=== PATIENT | male | born 1955 | race Caucasian/White ===

== ENCOUNTER 2018-04-10 09:02 | Outpatient (CLI) | payer OTHER | END 2018-04-10 09:03 | disposition home or self-care (01) | LOC: CAR 09:02 | PROVIDERS: ATTEND Family Medicine | DX: R03.0 Elevated blood-pressure reading, without diagnosis of hypertension (principal) | CPT/HCPCS: 93005; 93010 ==

== ENCOUNTER 2018-12-26 08:38 | Outpatient (CLI) ==
--- NOTE | 2018-12-26 13:15 | MRI ---
EXAM: Lumbar spine MRI without contrast. HISTORY: Low back pain. COMPARISON: None. TECHNIQUE: Multiplanar, multisequence MR images were acquired of the lumbar spine without contrast. The study is degraded by patient motion and lack of [id number] which produces decreased spatial and contrast resolution. FINDINGS: Five non-rib bearing lumbar vertebra are present. Conus medullaris ends at L1-2 and is no rmal morphology and signal intensity. Canal diameter is developmentally narrow. The lumbar vertebra are normal in height, AP alignment and intrinsic bone marrow signal. There is mild lumbar ventral s pondylosis and disc desiccation at L4-5 and L5-S1. There is mild endplate irregularity from T10-11 t hrough L2-3 with small chronic Schmorl's nodes from T10 to L2. The partially visualized liver, spleen and kidneys are unremarkable. Descending colonic diverticula are present without diverticulitis. The bladder is distended. There are no paravertebral masses. L1-2: There is a minor posterior disc bulge that may be physiologic. There is no central canal sten osis. Neural foramina are patent. L2-3: There is a minor disc bulge that minimally narrows the inferior right neural foramen. In this patient with short pedicles, there is minor bilateral foraminal stenosis. L3-4: There is a mild disc bulge with endplate osteophytes and bilateral facet arthropathy and ligam entum flavum hypertrophy. This causes mild right and mild to moderate left neural foraminal stenosis . There is no central canal stenosis. L4-5: There is a mild diffuse spondylotic disc bulge with endplate osteophytes that is asymmetric to the left and a small probable left far lateral disc protrusion that encroaches on the exiting left L 4 nerve. Detail is limited by patient motion. Bilateral facet and ligamentum flavum hypertrophy is present and there is minor central canal stenosis and moderate bilateral foraminal stenosis. AP diam eter of the thecal sac is 9.3 mm. L5-S1: There is a mild diffuse spondylotic disc bulge and a small central disc extrusion. Mild righ t hypertrophic facet arthropathy and mild left facet arthropathy are present. There is moderate righ t and mild-moderate left neural foraminal stenosis. There is mild tapering of the thecal sac. IMPRESSION: 1. Mild lower thoracic and lumbar degenerative spondylosis and facet arthropathy. Mild spinal steno sis at L4-5. 2. Probable small left far lateral disc protrusion L4-5 that encroaches on the exiting left L4 nerve . Detail is limited by patient motion. The lack of [id number]. 3. Small central disc extrusion L5-S1. 4. Mild to moderate left L3-4, moderate bilateral L4-5 and moderate right and mild to moderate left L5-S1 neural foraminal stenosis. 5. Colonic diverticulosis without diverticulitis.
== END 2018-12-26 08:39 | disposition home or self-care (01) ==
LOC: RAD 08:38
PROVIDERS: ATTEND Chiropractor Sports Physician
DX: M99.03 Segmental and somatic dysfunction of lumbar region (principal)

== ENCOUNTER 2024-08-03 18:50 | Observation (INO) ==
[2024-08-03 19:28] LABS: BASOPHILS % (AUTO) 0.2 % (0.0-3.0); EOSINOPHILS % (AUTO) 0.1 % (0.0-7.0); HEMATOCRIT 39.2 % (42.0-52.0); HEMOGLOBIN 13.6 g/dl (14.0-18.0); IMMATURE GRANULOCYTE # (AUTO) 0.1 (0.0-1.0); IMMATURE GRANULOCYTE % (AUTO) 0.5 % (0.0-5.0); LYMPHOCYTES # (AUTO) 2.4 K/uL (0.60-3.4); LYMPHOCYTES % (AUTO) 13.3 (10.0-50.0); MEAN CORPUSCULAR HEMOGLOBIN 34.4 pg (27.0-31.0); MEAN CORPUSCULAR HGB CONC 34.7 (31.8-35.4); MEAN CORPUSCULAR VOLUME 99.2 fl (80.0-94.0); MONOCYTES # (AUTO) 0.9 K/uL (0.4-2.0); MONOCYTES % (AUTO) 5.2 (0-10); NEUTROPHILS # (AUTO) 14.5 K/ul (2.0-6.9); NEUTROPHILS % (AUTO) 80.7 % (42.2-75.2); PLATELET COUNT 245 10^3/uL (140-440); RDW COEFFICIENT OF VARIATION 12.4 % (11.6-14.8); RED BLOOD COUNT 3.95 10^6/ul (4.70-6.10); WHITE BLOOD COUNT 18.01 K/ul (4.2-10.2)
[2024-08-03] MEDS: DUONEB NEB STA (19:28)
[2024-08-03] MEDS: DECADRON IVP ONE (19:32)
--- NOTE | 2024-08-03 19:33 | ED.PDOC ---
General ED Provider: Dr. DORA DURAND DO Chief Complaint: Respiratory Complaint Stated Complaint: 69-year-old male presents to the ER reporting cough and generalized weakness. Prickly worse today. Subjective fever at home. Nonproductive cough. History of hypertension, CVA, skin cancer, prostatectomy. Denies chest pain or abdominal pain, GI or symptoms at this time. No treatment prior to arrival. Time Seen by Provider: 08/03/24 18:54 Information Source: Patient and Family Primary Care Provider: PRICILA ANGEL Nursing and Triage Documentation Reviewed and Agree: Yes What is Opioid Naive?: *Opioid Naive implies the patient is not already taking opioids or not chronically receiving opioids on a daily basis. *PRN dosing is not "usually" associated with tolerance. *Patients are at higher risk of over-sedation and aspiration. What is Opioid Tolerant?: *Opioid Tolerance implies less than the expected response to an opioid. *Acquired tolerance is defined by the patient taking 60mg of oral morphine daily (or equianalgesic dose of another opioid) for 1 week or more. *Often associated with chronic pain. *May take more than usual dose to achieve desired pain control. Review of Systems Review Of Systems Constitutional: Reports No symptoms All Other Systems: Reviewed and Negative Physical Exam Physical Exam Appearance: Reports Well-appearing, No pain distress and Well-nourished Eyes: Reports MARIELOS and EOMI ENT: Reports Nose normal and Oropharynx normal Respiratory: Reports Airway patent, Respirations nonlabored and Crackles; Denies Rhonchi, Wheezes or Retractions Cardiovascular: Reports Pulses normal and Tachycardia; Denies RRR GI/: Reports Soft and Nontender Musculoskeletal: Reports Normal strength, ROM intact and No edema Skin: Reports Warm, Dry and Normal color Neurological: Reports Sensation intact, Motor intact, Alert and Oriented Psychiatric: Reports Affect appropriate and Mood appropriate Interpretation EKG Interpretation EKG Interpretation By: ED Physician Time of EKG #1: 19:13 Rate: Tachy Rhythm: Sinus Ectopy: None [facility]: Left ST Segment: Normal Interpretation: non ischemic Radiology Interpretation Radiology Interpretation By: ED Physician Radiology Results: Positive Exam Interpreted: Portable CXR (LLQ PNA) Critical Care Note Critical Care Note Total Critical Care Time (mins): 95 Comments: 79-year-old female presents hypoxic with subsequent diagnosis of pneumonia. Required supplemental oxygen, prolonged breathing treatments, cardiac monitoring, reassessments, reevaluation for response to treatment and continued advanced medical decision making in a potentially life-threatening condition Tissue reperfusion assessment completed. Stable. No adverse interval change. Well-appearing, improved. Course Course 08/03/24 19:18 08/03/24 19:18 Orders, Labs, Meds: Lab Review 08/03/24 08/03/24 08/03/24 19:18 19:21 20:00 WBC 18.01 H RBC 3.95 L Hgb 13.6 L Hct 39.2 L MCV 99.2 H MCH 34.4 H MCHC 34.7 RDW Coeff of Calvin 12.4 Plt Count 245 Immature Gran % (Auto) 0.5 Neut % (Auto) 80.7 H Lymph % (Auto) 13.3 [place] % (Auto) 5.2 Eos % (Auto) 0.1 Baso % (Auto) 0.2 Neut # (Auto) 14.5 H Lymph # (Auto) 2.4 [place] # (Auto) 0.9 Eos # (Auto) 0.0 Baso # (Auto) 0.0 Immature Gran # (Auto) 0.1 Sodium 135.0 Potassium 3.56 Chloride 101.9 Carbon Dioxide 22.8 Anion Gap 13.86 BUN 19.4 Creatinine 0.86 Estimated GFR (MDRD) 88.00 BUN/Creatinine Ratio 22.55 Glucose 133.3 H Lactic Acid 1.03 Calcium 10.18 Total Bilirubin 0.81 AST 26.3 ALT 21.6 Alkaline Phosphatase 69.4 Troponin I < 0.012 NT-Pro-B Natriuret Pep 381 H Total Protein 7.95 Albumin 4.66 Globulin 3.29 Albumin/Globulin Ratio 1.41 Urine Color Yellow Urine Clarity Clear Urine pH 6.5 Ur Specific [place] 1.010 Urine Protein Trace H Urine Glucose (UA) Negative Urine Ketones Negative Urine Blood Trace-lysed Urine Nitrite Negative Urine Bilirubin Negative Urine Urobilinogen 0.2 Ur Leukocyte Esterase Negative Urine Microscopic RBC 2-5 Ur Squamous Epith Cells 0-2 Influ A Molecular Assay Negative by naat Influ B Molecular Assay Negative by naat RSV Antigen Negative by naat SARS CoV-2 RNA Rapid KLARISSA Negative Orders Category Date Time Status ADMIT OBSERVATION [PLACE PATIENT OBSERVATION] .TO ADMISSION 08/03/24 20:48 Ordered MEDSURG (MONITORED BED) EKG-(ED ONLY) Stat CARDIO 08/03/24 19:05 Completed NEBULIZER TREATMENT Stat CARDIO 08/03/24 19:11 Completed NEBULIZER TREATMENT Stat CARDIO 08/03/24 20:35 Ordered TELEMETRY MONITORING TELE CARE 08/03/24 20:48 Ordered OXYGEN [ED APPLY O2] .ONCE EMERGENCY 08/03/24 19:43 Active BLOOD CULTURE (ED ONLY) Stat LAB 08/03/24 19:18 Received CBC W/ AUTO DIFF Stat LAB 08/03/24 19:18 Completed CMP [COMPREHENSIVE METABOLIC PANEL] Stat LAB 08/03/24 19:18 Completed COVID [SARS COV-2 RNA RAPID KLARISSA] Stat LAB 08/03/24 19:21 Completed ED PROBNP [NT-PROBNP(ED)] Stat LAB 08/03/24 19:18 Completed FLU A & B MOLECULAR [FLU A/B MOLECULAR] Stat LAB 08/03/24 19:21 Completed LACTIC ACID Stat LAB 08/03/24 19:18 Completed RSV Stat LAB 08/03/24 19:21 Completed TROPONIN I Stat LAB 08/03/24 19:18 Completed URINALYSIS C & S IF INDICATED Stat LAB 08/03/24 20:00 Completed Acetylcysteine [Mucomyst 20% Neb] Meds 08/03/24 20:35 Discontinued 200 mg NEB ONCE STA Azithromycin Inj [Zithromax] 500 mg Meds 08/03/24 20:35 Active 0.9 % Sodium Chloride [Sodium Chloride] 250 ml IV ONCE Cefepime 2 gm/D5w [Maxipime 2 gm/50 ml D5w] Meds 08/03/24 19:34 Discontinued 2 gm in 50 ml IV ONCE Dexamethasone Sod Phosphate [Decadron] Meds 08/03/24 19:11 Discontinued 10 mg IVP ONCE ONE Ipratropium/Albuterol Neb [Duoneb] Meds 08/03/24 19:11 Discontinued 3 ml NEB ONCE STA Sodium Chloride 0.9% [Sodium Chloride] 1,000 ml Meds 08/03/24 19:42 Discontinued IV BOLUS CHEST, 1V AP ONLY Stat RADS 08/03/24 19:06 Completed Medications Generic Name Dose Route Start Last Admin Trade Name Freq PRN Reason Stop Dose Admin Azithromycin 500 mg/ Sodium 250 mls @ 250 mls/hr 08/03/24 20:35 Chloride IV 08/03/24 21:34 ONCE STA Discontinued Medications Generic Name Dose Route Start Last Admin Trade Name Freq PRN Reason Stop Dose Admin Acetylcysteine 200 mg 08/03/24 20:35 Acetylcysteine 200 Mg/Ml 4 Ml Neb.Vial NEB 08/03/24 20:36 ONCE STA Albuterol/Ipratropium 3 ml 08/03/24 19:11 08/03/24 19:28 Ipratropium/Albuterol Vial.Neb NEB 08/03/24 19:12 3 ml ONCE STA Administration Dexamethasone Sodium Phosphate 10 mg 08/03/24 19:11 08/03/24 19:32 Dexamethasone Sod Phos 10 Mg/Ml Inj IVP 08/03/24 19:12 10 mg ONCE ONE Administration CEFEPIME 2 GM/D5W 2 gm in 50 mls @ 100 mls/hr 08/03/24 19:34 08/03/24 20:10 Maxipime 2 Gm/50 Ml D5w IV 08/03/24 20:03 100 mls/hr ONCE STA Administration Sodium Chloride 1,000 mls @ 1,000 mls/hr 08/03/24 19:42 08/03/24 20:10 Sodium Chloride IV 08/03/24 20:41 1,000 mls/hr BOLUS ONE Administration Vital Signs: Temp Pulse Resp BP Pulse Ox 08/03/24 18:59 98.7 F 115 H 20 173/90 H 93 L Discharge Plan Discharge Patient Disposition: PLACED OBSERVATION Discharge Problem: Sepsis, Pneumonia, Acute respiratory failure Prescriptions: No Action colchicine 0.6 mg tablet 0.6 mg PO BID atorvastatin 80 mg tablet 80 mg PO DAILY valacyclovir 1 gram tablet 1,000 mg PO DAILY amlodipine 5 mg tablet 5 mg PO DAILY allopurinol 100 mg tablet 200 mg PO DAILY losartan 100 mg tablet 100 mg PO DAILY omeprazole 20 mg capsule,delayed release(DR/EC) 20 mg PO DAILY aspirin [Adult Low Dose Aspirin] 81 mg tablet,delayed release (DR/EC) 81 mg PO DAILY Did you review [place] [employer] for ALL controlled substances?: Not Applicable ED Provider: DORA DURAND Condition: Stable
[2024-08-03 19:39] LABS: ALANINE AMINOTRANSFERASE 21.6 U/L (0-50); ALBUMIN 4.66 g/dL (3.5-5.0); ALKALINE PHOSPHATASE 69.4 U/L (56-119); ASPARTATE AMINO TRANSFERASE 26.3 U/L (17-59); BILIRUBIN,TOTAL 0.81 mg/dL (0.2-1.3); BLOOD UREA NITROGEN 19.4 mg/dL (9-20); CALCIUM 10.18 mg/dL (8.4-10.2); CARBON DIOXIDE 22.8 mmol/L (22-30.0); CHLORIDE 101.9 mmol/L (98-107); CREATININE 0.86 mg/dL (0.60-1.10); GLUCOSE 133.3 mg/dL (74-106); POTASSIUM 3.56 mmol/L (3.5-5.1); TOTAL PROTEIN 7.95 g/dL (6.3-8.2)
--- NOTE | 2024-08-03 19:41 | DI ---
EXAM: CHEST, ONE-VIEW HISTORY: Shortness of breath FINDINGS: Cardiac and mediastinal contours are normal. Pulmonary vasculature is normal. Elevated opacity in t he retrocardiac left lower lobe. Bony thorax is unremarkable. IMPRESSION: Consolidative opacity in the retrocardiac left lower lobe may represent pneumonia. Foll ow-up to resolution recommended.
[2024-08-03 19:46] LABS: SARS COV-2 RNA RAPID NAAT NEGATIVE (NEGATIVE)
[2024-08-03 19:47] LABS: MOLECULAR FLU A NEGATIVE BY NAAT (NEGATIVE); MOLECULAR FLU B NEGATIVE BY NAAT (NEGATIVE); RSV MOLECULAR NEGATIVE BY NAAT (NEGATIVE)
[2024-08-03 19:51] LABS: TROPONIN I < 0.012 ng/ml (0.0000-0.120)
[2024-08-03] MEDS: SODIUM CHLORIDE 1,000 ML IV ONE (20:10)
[2024-08-03] MEDS: MAXIPIME 2 GM/50 ML D5W 2 GM/50 ML BAG IV STA (20:10)
[2024-08-03 20:14] LABS: BILIRUBIN,URINE Negative (NEGATIVE); CLARITY,URINE Clear (CLEAR); COLOR,URINE Yellow (YELLOW); GLUCOSE, URINE (UA) Negative (NEGATIVE); KETONES,URINE Negative (NEGATIVE); LEUKOCYTE ESTERASE ,URINE Negative (NEGATIVE); NITRITE,URINE Negative (NEGATIVE); PH,URINE 6.5 (5-9); PROTEIN,URINE Trace (NEGATIVE); URINE, BLOOD Trace-lysed (NEGATIVE); UROBILINOGEN,URINE 0.2 (0.2)
[2024-08-03 20:16] LABS: SQUAMOUS EPITHELIAL CELL,UR 0-2 (0-5)
[2024-08-03] MEDS: MUCOMYST 20% NEB NEB STA (20:51)
[2024-08-03] MEDS ORDERED: TYLENOL PO PRN (21:07)
[2024-08-03] MEDS: ZITHROMAX 500 MG in SODIUM CHLORIDE 250 ML IV STA (21:24)
[2024-08-04] MEDS: DUONEB NEB SCH (00:02)
[2024-08-04 00:37] VITALS: BMI 27.2
[2024-08-04] MEDS: SOLU-MEDROL 40 MG IVP SCH (05:30)
[2024-08-04 05:42] LABS: BASOPHILS % (AUTO) 0.1 % (0.0-3.0); EOSINOPHILS % (AUTO) 0.2 % (0.0-7.0); HEMATOCRIT 38.3 % (42.0-52.0); HEMOGLOBIN 12.9 g/dl (14.0-18.0); IMMATURE GRANULOCYTE # (AUTO) 0.1 (0.0-1.0); IMMATURE GRANULOCYTE % (AUTO) 0.8 % (0.0-5.0); LYMPHOCYTES % (AUTO) 7.9 (10.0-50.0); MEAN CORPUSCULAR HEMOGLOBIN 33.7 pg (27.0-31.0); MEAN CORPUSCULAR HGB CONC 33.7 (31.8-35.4); MONOCYTES # (AUTO) 0.3 K/uL (0.4-2.0); MONOCYTES % (AUTO) 2.2 (0-10); NEUTROPHILS # (AUTO) 11.5 K/ul (2.0-6.9); NEUTROPHILS % (AUTO) 88.8 % (42.2-75.2); PLATELET COUNT 251 10^3/uL (140-440); RDW COEFFICIENT OF VARIATION 12.4 % (11.6-14.8); RED BLOOD COUNT 3.83 10^6/ul (4.70-6.10)
[2024-08-04 06:04] LABS: ALANINE AMINOTRANSFERASE 21.3 U/L (0-50); ALBUMIN 4.34 g/dL (3.5-5.0); ALKALINE PHOSPHATASE 60.7 U/L (56-119); ASPARTATE AMINO TRANSFERASE 24.7 U/L (17-59); BILIRUBIN,TOTAL 0.36 mg/dL (0.2-1.3); BLOOD UREA NITROGEN 19.3 mg/dL (9-20); CALCIUM 9.81 mg/dL (8.4-10.2); CHLORIDE 106.5 mmol/L (98-107); CREATININE 0.95 mg/dL (0.60-1.10); GLUCOSE 260.9 mg/dL (74-106); POTASSIUM 3.64 mmol/L (3.5-5.1); SODIUM 138.4 mmol/L (134.5-145); TOTAL PROTEIN 7.74 g/dL (6.3-8.2)
[2024-08-04 06:26] LABS: WHITE BLOOD COUNT 12.96 K/ul (4.2-10.2)
[2024-08-04] MEDS ORDERED: MAXIPIME 2 GM/50 ML D5W 2 GM/50 ML BAG IV SCH (08:00)
[2024-08-04] MEDS: COLCRYS PO SCH (09:30)
[2024-08-04] MEDS: NORVASC PO SCH (09:31)
[2024-08-04] MEDS: COZAAR PO SCH (09:31)
[2024-08-04] MEDS: ZYLOPRIM PO SCH (09:31)
[2024-08-04] MEDS: VALTREX PO SCH (09:31)
[2024-08-04] MEDS: ASPIRIN EC PO SCH (09:31)
[2024-08-04] MEDS: LIPITOR PO SCH (09:31)
[2024-08-04] MEDS: PRILOSEC PO SCH (09:31)
[2024-08-04] MEDS: ROCEPHIN 1 GM/50 ML D5W 1 GM/50 ML BAG IV SCH (09:38)
--- NOTE | 2024-08-04 12:07 | PCM ---
Date of Service Date Seen by Provider: 08/04/24 Time Seen by Provider: 09:00 Admit Day/Time Admission Date: 08/03/24 Reason for Admission Chief Complaint: COUGH,CONGESTION Hospital Provider Hospital Provider: CORINNA GEORGE, [facility] [place] Primary Care Physician Primary Care Physician: PRICILA ANGEL History of Present Illness History of Present Illness: 69 yo male with pmh of htn, hld, alcohol abuse, and cad presented to the ER with complaints of cough, congestion, and shortness of breath. Patient states that over the last 3 days that he has continued to not feel well. States yesterday he just kept coughing continuously. Cough was dry at that time. Denies fever, chills, body aches, chest pain, n/v/d. Patient found to have pneumonia on chest xray. Also, while in ER patient O2 sat dropping down to upper 80s. He was placed on 2L at that time. Admitted to med/surg observation. Case Discussed With Case Discussed With: Patient's case was discussed with the ER Physicians, Dr. Elizalde. [facility] Medical History Prostate disease N42.9 - Disorder of prostate, unspecified (ICD-10) Carotid artery disease I77.9 - Disorder of arteries and arterioles, unspecified (ICD-10) Shingles B02.9 - Zoster without complications (ICD-10) Acid reflux K21.9 - Gastro-esophageal reflux disease without esophagitis (ICD-10) Gout M10.9 - Gout, unspecified (ICD-10) High cholesterol E78.00 - Pure hypercholesterolemia, unspecified (ICD-10) HTN (hypertension) I10 - Essential (primary) hypertension (ICD-10) Surgical History History of back surgery Z98.890 - Other specified postprocedural states (ICD-10) History of prostatectomy Z90.79 - Acquired absence of other genital organ(s) (ICD-10) History of carotid endarterectomy Z98.890 - Other specified postprocedural states (ICD-10) Social History Smoking and tobacco status: Current every day smoker Tobacco: How many years used: 50 Alcohol intake: current Alcohol intake frequency: a few times a week Alcohol type: beer Substance use type: does not use Allergies Allergies Allergy/AdvReac Type Severity Reaction Status Date / Time No Known Allergies Allergy Unverified 08/03/24 19:03 Current Medications Home Medications allopurinol 100 mg tablet 200 mg PO DAILY 08/03/24 [History Confirmed 08/04/24 Last Taken 08/03/24] amlodipine 5 mg tablet 5 mg PO DAILY 08/03/24 [History Confirmed 08/04/24 Last Taken 08/03/24] aspirin 81 mg tablet,delayed release (Adult Low Dose Aspirin) 81 mg PO DAILY 08/03/24 [History Confirmed 08/04/24 Last Taken 08/03/24] atorvastatin 80 mg tablet 80 mg PO DAILY 08/03/24 [History Confirmed 08/04/24 Last Taken 08/03/24] colchicine 0.6 mg tablet 0.6 mg PO BID 08/03/24 [History Confirmed 08/04/24 Last Taken 08/03/24] losartan 100 mg tablet 100 mg PO DAILY 08/03/24 [History Confirmed 08/04/24 Last Taken 08/03/24] omeprazole 20 mg capsule,delayed release 20 mg PO DAILY 08/03/24 [History Confirmed 08/04/24 Last Taken 08/03/24] valacyclovir 1 gram tablet 1,000 mg PO DAILY 08/03/24 [History Confirmed 08/04/24 Last Taken 08/03/24] Home Acetaminophen (Acetaminophen 325 Mg Tablet) 650 mg PO Q4H PRN PRN Reason: Mild Pain Albuterol/Ipratropium (Ipratropium/Albuterol Vial.Neb) 3 ml NEB RTQ6H [facility] Last Admin: 08/04/24 11:36 Dose: 3 ml Allopurinol (Allopurinol 100 Mg Tablet) 200 mg PO DAILY [facility] Last Admin: 08/04/24 09:31 Dose: 200 mg Amlodipine Besylate (Amlodipine Besylate 5 Mg Tablet) 5 mg PO DAILY [facility] Last Admin: 08/04/24 09:31 Dose: 5 mg Aspirin (Aspirin 81 Mg Tablet.) 81 mg PO DAILYWM2 [facility] Last Admin: 08/04/24 09:31 Dose: 81 mg Atorvastatin Calcium (Atorvastatin Calcium 20 Mg Tablet) 80 mg PO DAILY [facility] Last Admin: 08/04/24 09:31 Dose: 80 mg Colchicine (Colchicine 0.6 Mg Tablet) 0.6 mg PO BID [facility] Last Admin: 08/04/24 09:30 Dose: 0.6 mg Azithromycin 500 mg/ Sodium (Chloride) 250 mls @ 250 mls/hr IV BEDTIME SAMANTHA Stop: 08/05/24 22:00 CEFTRIAXONE/D5W 1 GM PREMIX (Rocephin 1 Gm/50 Ml D5w) 1 gm in 50 mls @ 100 mls/hr IV DAILY SAMANTHA Stop: 08/07/24 08:59 Last Admin: 08/04/24 09:38 Dose: 100 mls/hr Losartan Potassium (Losartan Potassium 100 Mg Tablet) 100 mg PO DAILY [facility] Last Admin: 08/04/24 09:31 Dose: 100 mg Methylprednisolone Sodium Succinate (Methylprednisolone Sod Succ/Pf 40 Mg/Ml Vial) 40 mg IVP Q8HR [facility] Last Admin: 08/04/24 05:30 Dose: 40 mg Omeprazole (Omeprazole 20 Mg Capsule.Dr) 20 mg PO QDAC2 [facility] Last Admin: 08/04/24 09:31 Dose: 20 mg Sodium Chloride (0.9% Sodium Chloride 10 Ml Disp.Syrin) 1 syr IVF Q8HR [facility] Valacyclovir HCl (Valacyclovir Hcl 500 Mg Tablet) 1,000 mg PO DAILY [facility] Last Admin: 08/04/24 09:31 Dose: 1,000 mg Discontinued Medications Acetylcysteine (Acetylcysteine 200 Mg/Ml 4 Ml Neb.Vial) 200 mg NEB ONCE STA Stop: 08/03/24 20:36 Last Admin: 08/03/24 20:51 Dose: 200 mg Albuterol/Ipratropium (Ipratropium/Albuterol Vial.Neb) 3 ml NEB ONCE STA Stop: 08/03/24 19:12 Last Admin: 08/03/24 19:28 Dose: 3 ml Dexamethasone Sodium Phosphate (Dexamethasone Sod Phos 10 Mg/Ml Inj) 10 mg IVP ONCE ONE Stop: 08/03/24 19:12 Last Admin: 08/03/24 19:32 Dose: 10 mg CEFEPIME 2 GM/D5W (Maxipime 2 Gm/50 Ml D5w) 2 gm in 50 mls @ 100 mls/hr IV ONCE STA Stop: 08/03/24 20:03 Last Admin: 08/03/24 20:10 Dose: 100 mls/hr Sodium Chloride (Sodium Chloride) 1,000 mls @ 1,000 mls/hr IV BOLUS ONE Stop: 08/03/24 20:41 Last Infusion: 08/03/24 21:10 Dose: Infused Azithromycin 500 mg/ Sodium (Chloride) 250 mls @ 250 mls/hr IV ONCE STA Stop: 08/03/24 21:34 Last Admin: 08/03/24 21:24 Dose: 250 mls/hr Opioid Naive vs. Tolerant Does Patient Take Opioids?: No Is Patient Opioid Naive?: Yes What is Opioid Naive?: *Opioid Naive implies the patient is not already taking opioids or not chronically receiving opioids on a daily basis. *PRN dosing is not "usually" associated with tolerance. *Patients are at higher risk of over-sedation and aspiration. Is Patient Opioid Tolerant?: No What is Opioid Tolerant?: *Opioid Tolerance implies less than the expected response to an opioid. *Acquired tolerance is defined by the patient taking 60mg of oral morphine daily (or equianalgesic dose of another opioid) for 1 week or more. *Often associated with chronic pain. *May take more than usual dose to achieve desired pain control. Review of Systems Constitutional: Reports No symptoms Eyes: Reports No symptoms Ears: Reports No symptoms Nose: Reports Congestion Mouth: Reports No symptoms Throat: Reports No symptoms Cardiovascular: Reports No symptoms Respiratory: Reports Cough and Shortness of air Gastrointestinal: Reports No symptoms Genitourinary: Reports No Symptoms Musculoskeletal: Reports No symptoms Endocrine: Reports No symptoms Hematology: Reports No symptoms Immunology: Reports No symptoms Neurological: Reports No symptoms Psychiatric: Reports No symptoms Physical examination Most Recent Vital Signs: Most Recent Vital Signs Temperature 98.8 F 08/04/24 09:58 Temperature Source Temporal Artery Scan 08/04/24 09:58 Temperature Source Infrared 08/03/24 18:59 Pulse Rate 108 H 08/04/24 09:58 Respiratory Rate 18 08/04/24 09:58 Blood Pressure 161/89 H 08/04/24 09:58 Blood Pressure Mean 113 08/04/24 09:58 Blood Pressure Right Arm 159/95 08/03/24 23:38 Blood Pressure Location Right Arm 08/04/24 09:58 Blood Pressure Position Supine 08/04/24 05:28 O2 Sat by Pulse Oximetry 93 L 08/04/24 10:00 Oxygen Delivery Method Nasal Cannula 08/04/24 10:42 Oxygen Flow Rate 2 08/04/24 10:00 Height 5 ft 9 in 08/03/24 23:38 Weight 83.7 kg 08/03/24 23:38 Telemetry Type Remote Telemetry 08/04/24 07:00 Telemetry Monitoring Continues 08/04/24 07:00 Telemetry Heart Rate 96 08/04/24 07:00 Telemetry SPO2 92 L 08/04/24 07:00 EKG PA Interval 0.13 08/04/24 07:00 EKG QRS Interval 0.04 L 08/04/24 07:00 Telemetry Strip Reading SR 08/04/24 07:00 Appearance: Positive No Apparent Distress and Alert and Oriented x3 Skin: Positive Warm and Good Turgor HEENT: Positive Normocephalic and PERRLA Neck: Positive Supple and Midline Trachea Chest/Lungs: Positive Symmetrical With Equal Breath Sounds and Rhonci (L upper and bilateral lower lobes) Heart: Positive RRR and Pulses Normal GI/: Positive Soft, Nontender, Bowel Sounds Normal and No Distention Musculoskeletal: Positive Not Examined Extremities: Positive Intact Peripheral Pulses, Stable Joints Without Laxity and Good ROM in All Joints Neurological: Positive Sensation Intact, Motor intact, Alert, Oriented and Muscle Strength 5/5 in Upper and Lower Extremities Bilaterally Labs This Visit Labs This Visit: Labs This Visit 08/03/24 08/03/24 08/03/24 19:18 19:21 20:00 WBC 18.01 H RBC 3.95 L Hgb 13.6 L Hct 39.2 L MCV 99.2 H MCH 34.4 H MCHC 34.7 RDW Coeff of Calvin 12.4 Plt Count 245 Immature Gran % (Auto) 0.5 Neut % (Auto) 80.7 H Lymph % (Auto) 13.3 [place] % (Auto) 5.2 Eos % (Auto) 0.1 Baso % (Auto) 0.2 Neut # (Auto) 14.5 H Lymph # (Auto) 2.4 [place] # (Auto) 0.9 Eos # (Auto) 0.0 Baso # (Auto) 0.0 Immature Gran # (Auto) 0.1 Sodium 135.0 Potassium 3.56 Chloride 101.9 Carbon Dioxide 22.8 Anion Gap 13.86 BUN 19.4 Creatinine 0.86 Estimated GFR (MDRD) 88.00 BUN/Creatinine Ratio 22.55 Glucose 133.3 H Lactic Acid 1.03 Calcium 10.18 Total Bilirubin 0.81 AST 26.3 ALT 21.6 Alkaline Phosphatase 69.4 Troponin I < 0.012 NT-Pro-B Natriuret Pep 381 H Total Protein 7.95 Albumin 4.66 Globulin 3.29 Albumin/Globulin Ratio 1.41 Urine Color Yellow Urine Clarity Clear Urine pH 6.5 Ur Specific [place] 1.010 Urine Protein Trace H Urine Glucose (UA) Negative Urine Ketones Negative Urine Blood Trace-lysed Urine Nitrite Negative Urine Bilirubin Negative Urine Urobilinogen 0.2 Ur Leukocyte Esterase Negative Urine Microscopic RBC 2-5 Ur Squamous Epith Cells 0-2 Influ A Molecular Assay Negative by naat Influ B Molecular Assay Negative by naat RSV Antigen Negative by naat SARS CoV-2 RNA Rapid KLARISSA Negative 08/04/24 05:18 WBC 12.96 H D RBC 3.83 L Hgb 12.9 L Hct 38.3 L MCV 100.0 H MCH 33.7 H MCHC 33.7 RDW Coeff of [place] 12.4 Plt Count 251 Immature Gran % (Auto) 0.8 Neut % (Auto) 88.8 H Lymph % (Auto) 7.9 L [place] % (Auto) 2.2 Eos % (Auto) 0.2 Baso % (Auto) 0.1 Neut # (Auto) 11.5 H Lymph # (Auto) 1.0 [place] # (Auto) 0.3 L Eos # (Auto) 0.0 Baso # (Auto) 0.0 Immature Gran # (Auto) 0.1 Sodium 138.4 Potassium 3.64 Chloride 106.5 Carbon Dioxide 20.0 L Anion Gap 15.54 BUN 19.3 Creatinine 0.95 Estimated GFR (MDRD) 79.00 BUN/Creatinine Ratio 20.31 Glucose 260.9 H D Lactic Acid Calcium 9.81 Total Bilirubin 0.36 AST 24.7 ALT 21.3 Alkaline Phosphatase 60.7 Troponin I NT-Pro-B Natriuret Pep Total Protein 7.74 Albumin 4.34 Globulin 3.40 Albumin/Globulin Ratio 1.27 Urine Color Urine Clarity Urine pH Ur Specific [place] Urine Protein Urine Glucose (UA) Urine Ketones Urine Blood Urine Nitrite Urine Bilirubin Urine Urobilinogen Ur Leukocyte Esterase Urine Microscopic RBC Ur Squamous Epith Cells Influ A Molecular Assay Influ B Molecular Assay RSV Antigen SARS CoV-2 RNA Rapid KLARISSA Imaging Imaging: EXAM: CHEST, ONE-VIEW FINDINGS: Cardiac and mediastinal contours are normal. Pulmonary vasculature is normal. Elevated opacity in the retrocardiac left lower lobe. Bony thorax is unr emarkable. IMPRESSION: Consolidative opacity in the retrocardiac left lower lobe may represent pneumonia. Follow-up to resolution recommended. Review Statement Review Statement: I have independently reviewed and interpreted the labs/EKGs/imaging that were ordered by the ER provider. I have reviewed all outside records that are available currently in our EMR including imaging/notes/labs from previous visits. Plan Plan: 1. Acute Hypoxic Respiratory Failure in setting of CAP - wean oxygen as tolerated, nebs, steroids 2. CAP - rocephin, azith, steroids, nebs; mrsa, sputum, legionella, and strep pneumo ordered 3. Sepsis in setting of CAP - blood cultures pending, IVF not given in ER, patient does not appear hypovolemic 4. Hypertension - chronic, continue home medications 5. Alcohol abuse - daily drinker, monitor for s/sx of withdrawal DVT Prophylaxis: Ambulation Time Spent: Greater than 80 minutes spent with patient, 50% of the time spent with this patient was devoted to counseling and coordination of care. Advanced Care Plannin minutes spent discussing advance care planning. Smoking Cessation: 3-10 minutes spent discussing smoking cessation. Disposition: Admit to: Med/Surg Observation Full Code Discussed Plan of Care with Dr. Queenie Guallpa. Medications Medication Orders: Medications Ordered Category Date Time Status 0.9 % Sodium Chloride [Saline Flush] Meds 08/04/24 13:00 Active 1 syr IVF Q8HR Acetaminophen [Tylenol] Meds 08/03/24 21:07 Active 650 mg PO Q4H PRN Allopurinol [Zyloprim] Meds 08/04/24 09:00 Active 200 mg PO DAILY Amlodipine Besylate [Norvasc] Meds 08/04/24 09:00 Active 5 mg PO DAILY Aspirin [Aspirin EC] Meds 08/04/24 09:00 Active 81 mg PO DAILYWM2 Atorvastatin Calcium [Lipitor] Meds 08/04/24 09:00 Active 80 mg PO DAILY Azithromycin Inj [Zithromax] 500 mg Meds 08/04/24 21:00 Active 0.9 % Sodium Chloride [Sodium Chloride] 250 ml IV BEDTIME Ceftriaxone/D5w 1 gm Premix [Rocephin 1 gm/50 ml D5w] Meds 08/04/24 09:00 Active 1 gm in 50 ml IV DAILY Colchicine [Colcrys] Meds 08/04/24 09:00 Active 0.6 mg PO BID Ipratropium/Albuterol Neb [Duoneb] Meds 08/04/24 01:00 Active 3 ml NEB RTQ6H Losartan Potassium [Cozaar] Meds 08/04/24 09:00 Active 100 mg PO DAILY Methylprednisolone Sod Succ/Pf [Solu-Medrol 40 mg] Meds 08/04/24 05:00 Active 40 mg IVP Q8HR Omeprazole [Prilosec] Meds 08/04/24 09:00 Active 20 mg PO QDAC2 Valacyclovir HCl [Valtrex] Meds 08/04/24 09:00 Active 1,000 mg PO DAILY
[2024-08-04] MEDS: ZITHROMAX 500 MG in SODIUM CHLORIDE 250 ML IV SCH (20:51)
[2024-08-05 05:08] VITALS: RESP 18
[2024-08-05 05:27] LABS: BASOPHILS % (AUTO) 0.1 % (0.0-3.0); HEMATOCRIT 35.9 % (42.0-52.0); HEMOGLOBIN 12.4 g/dl (14.0-18.0); IMMATURE GRANULOCYTE # (AUTO) 0.4 (0.0-1.0); IMMATURE GRANULOCYTE % (AUTO) 2.1 % (0.0-5.0); LYMPHOCYTES # (AUTO) 1.8 K/uL (0.60-3.4); LYMPHOCYTES % (AUTO) 10.2 (10.0-50.0); MEAN CORPUSCULAR HEMOGLOBIN 34.8 pg (27.0-31.0); MEAN CORPUSCULAR HGB CONC 34.5 (31.8-35.4); MEAN CORPUSCULAR VOLUME 100.8 fl (80.0-94.0); MONOCYTES # (AUTO) 0.8 K/uL (0.4-2.0); MONOCYTES % (AUTO) 4.5 (0-10); NEUTROPHILS # (AUTO) 14.4 K/ul (2.0-6.9); NEUTROPHILS % (AUTO) 83.1 % (42.2-75.2); PLATELET COUNT 270 10^3/uL (140-440); RDW COEFFICIENT OF VARIATION 12.3 % (11.6-14.8); RED BLOOD COUNT 3.56 10^6/ul (4.70-6.10); WHITE BLOOD COUNT 17.28 K/ul (4.2-10.2)
[2024-08-05 05:39] LABS: ALBUMIN 4.17 g/dL (3.5-5.0); ALKALINE PHOSPHATASE 64.2 U/L (56-119); ASPARTATE AMINO TRANSFERASE 29.5 U/L (17-59); BILIRUBIN,TOTAL 0.18 mg/dL (0.2-1.3); BLOOD UREA NITROGEN 21.6 mg/dL (9-20); CALCIUM 9.19 mg/dL (8.4-10.2); CARBON DIOXIDE 21.7 mmol/L (22-30.0); CHLORIDE 108.3 mmol/L (98-107); CREATININE 0.82 mg/dL (0.60-1.10); GLUCOSE 221.6 mg/dL (74-106); POTASSIUM 3.4 mmol/L (3.5-5.1); SODIUM 140.7 mmol/L (134.5-145); TOTAL PROTEIN 7.38 g/dL (6.3-8.2)
[2024-08-05] MEDS: K-DUR PO ONE (08:45)
--- NOTE | 2024-08-05 08:55 | DCSUM ---
Admission Date Admission Date: 08/03/24 Discharge Date Discharge Date: 08/05/24 Admission Diagnosis Admission Diagnosis: 1. Acute Hypoxic Respiratory Failure in setting of CAP 2. CAP 3. Sepsis in setting of CAP 4. Hypertension 5. Alcohol abuse Discharge Diagnosis Discharge Diagnosis: 1. Acute Hypoxic Respiratory Failure in setting of CAP - Resolved 2. CAP - Improving 3. Sepsis in setting of CAP - Ruled out, blood cultures negative x 48 hours 4. Hypertension - chronic, stable 5. Alcohol abuse - no s/sx withdrawal Hospital Provider Hospital Provider: CORINNA GEORGE, [facility] [place] Primary Care Physician: PRICILA ANGEL Summary of History and Physical Summary of History and Physical: 69 yo male with pmh of htn, hld, alcohol abuse, and cad presented to the ER with complaints of cough, congestion, and shortness of breath. Patient states that over the last 3 days that he has continued to not feel well. States yesterday he just kept coughing continuously. Cough was dry at that time. Denies fever, chills, body aches, chest pain, n/v/d. Patient found to have pneumonia on chest xray. Also, while in ER patient O2 sat dropping down to upper 80s. He was placed on 2L at that time. Admitted to med/surg observation. Hospital Course Subjective: During stay, patient initially required 2L of oxygen and was weaned to RA as of this AM. Sat remaining stable. Treated for CAP with rocephin, azith, steroids, and nebs. MRSA screen negative. Strep pneumo, legionella, and sputum collected and pending. Patient is feeling much better this am and requesting discharge. D/c with rx for augmentin and prednisone. Completed 3 day course of azith. Appearance: Pleasant, No Apparent Distress and Alert HEENT: MMM, Supple and No JVD CVS: No Murmur and No Rubs Abdomen: Soft, Non-Tender and No Distention Respiratory: No Dyspnea Extremities: No Edema Vital Signs: Most Recent Vital Signs Temperature 98.2 F 08/05/24 05:07 Temperature Source Temporal Artery Scan 08/05/24 05:07 Temperature Source Infrared 08/03/24 18:59 Pulse Rate 78 08/05/24 05:07 Respiratory Rate 18 08/05/24 05:07 Blood Pressure 119/64 08/05/24 05:07 Blood Pressure Mean 82 08/05/24 05:07 Blood Pressure Right Arm 159/95 08/03/24 23:38 Blood Pressure Location Right Arm 08/05/24 05:07 Blood Pressure Position Supine 08/05/24 05:07 O2 Sat by Pulse Oximetry 97 08/05/24 05:07 Oxygen Delivery Method Nasal Cannula 08/05/24 07:00 Oxygen Flow Rate 2 08/05/24 05:14 Height 5 ft 9 in 08/03/24 23:38 Weight 83.7 kg 08/03/24 23:38 Telemetry Type Remote Telemetry 08/05/24 01:00 Telemetry Monitoring Continues 08/05/24 01:00 Telemetry Heart Rate 80 08/05/24 01:00 Telemetry SPO2 91 L 08/05/24 01:00 EKG IN Interval 0.16 08/05/24 01:00 EKG QRS Interval 0.08 08/05/24 01:00 Telemetry Strip Reading sinus rhythm 08/05/24 01:00 Imaging: EXAM: CHEST, ONE-VIEW HISTORY: Shortness of breath FINDINGS: Cardiac and mediastinal contours are normal. Pulmonary vasculature is normal. Elevated opacity in the retrocardiac left lower lobe. Bony thorax is unremarkable. IMPRESSION: Consolidative opacity in the retrocardiac left lower lobe may represent pneumonia. Follow-up to resolution recommended. Lab Results Last 24 Hours: 08/05/24 05:18 WBC 17.28 H RBC 3.56 L Hgb 12.4 L Hct 35.9 L MCV 100.8 H MCH 34.8 H MCHC 34.5 RDW Coeff of Calvin 12.3 Plt Count 270 Immature Gran % (Auto) 2.1 Neut % (Auto) 83.1 H Lymph % (Auto) 10.2 [place] % (Auto) 4.5 Eos % (Auto) 0.0 Baso % (Auto) 0.1 Neut # (Auto) 14.4 H Lymph # (Auto) 1.8 [place] # (Auto) 0.8 Eos # (Auto) 0.0 Baso # (Auto) 0.0 Immature Gran # (Auto) 0.4 Sodium 140.7 Potassium 3.40 L Chloride 108.3 H Carbon Dioxide 21.7 L Anion Gap 14.10 BUN 21.6 H Creatinine 0.82 Estimated GFR (MDRD) 93.00 BUN/Creatinine Ratio 26.34 Glucose 221.6 H Calcium 9.19 Total Bilirubin 0.18 L AST 29.5 ALT 23.0 Alkaline Phosphatase 64.2 Total Protein 7.38 Albumin 4.17 Globulin 3.21 Albumin/Globulin Ratio 1.29 Discharge Instructions Discharge Planning: Discharge Planning > 40 minutes If patient is discharged with left ventricular systolic dysfunction: NA Discharged with a beta jey? [] If no, why not? [] Discharged with an thelma/arb? [] If no, why not? [] Diagnosis: Pneumonia Diet: Regular Activity: as tolerated Medications: Augmentin, Steroids Discharge Medications: Medications at Discharge (Home Meds & RX) allopurinol 100 mg tablet 200 mg PO DAILY 08/03/24 amlodipine 5 mg tablet 5 mg PO DAILY 08/03/24 aspirin 81 mg tablet,delayed release (Adult Low Dose Aspirin) 81 mg PO DAILY 08/03/24 atorvastatin 80 mg tablet 80 mg PO DAILY 08/03/24 colchicine 0.6 mg tablet 0.6 mg PO BID 08/03/24 losartan 100 mg tablet 100 mg PO DAILY 08/03/24 omeprazole 20 mg capsule,delayed release 20 mg PO DAILY 08/03/24 valacyclovir 1 gram tablet 1,000 mg PO DAILY 08/03/24 Discharge Plan Discharge Discharge Orders: Discharge Patient (ONCE); Ordered 08/05/24 Ordered By: NILDA ROB Activity Restrictions/Additional Instructions: Diagnosis: Pneumonia Diet: Regular Activity: as tolerated Medications: Augmentin, Steroids start both medications on 08/06/[address] [place] in 5-7 days Instructions: Community Acquired Pneumonia (GEN) Patient Disposition: HOME WITH FAMILY CARE Prescriptions: New amoxicillin-pot clavulanate 875-125 mg tablet 1 tab PO BID 4 Days Qty: 8 0RF prednisone 10 mg tablet 10 mg PO DAILY Qty: 3 0RF Continued colchicine 0.6 mg tablet 0.6 mg PO BID atorvastatin 80 mg tablet 80 mg PO DAILY valacyclovir 1 gram tablet 1,000 mg PO DAILY amlodipine 5 mg tablet 5 mg PO DAILY allopurinol 100 mg tablet 200 mg PO DAILY losartan 100 mg tablet 100 mg PO DAILY omeprazole 20 mg capsule,delayed release(DR/EC) 20 mg PO DAILY aspirin [Adult Low Dose Aspirin] 81 mg tablet,delayed release (DR/EC) 81 mg PO DAILY Did you review [place] [employer] for ALL controlled substances?: No Discussed opioids are addictive and Narcan is available by prescription or from pharmacy.: No Condition: Stable
[2024-08-05] MEDS: ZITHROMAX PO ONE (09:38)
[2024-08-05 10:27] VITALS: BP 121/89; PULSE 84; TEMP 98.7
[2024-08-07 12:08] LABS: SPECIMEN SOURCE Urine (.); STEP PNEUMO ORGANISM ID Not indicated. (.); STREP PNEUMO AG Negative (Negative); STREP PNEUMO BODY FLUID CULT Not indicated. (.)
== END 2024-08-05 09:50 | disposition home or self-care (01) ==
LOC: ED 18:50 → MEDSURG B 20:50 → INTOOBSV 20:50 → MEDSURG B 23:45
PROVIDERS: ADMIT Hospitalist; ATTEND Nurse Practitioner Family
DX: Z86.73 Personal history of transient ischemic attack (TIA), and cerebral infarction without residual deficits; J18.9 Pneumonia, unspecified organism; I10 Essential (primary) hypertension; F10.10 Alcohol abuse, uncomplicated; E78.5 Hyperlipidemia, unspecified; Z51.81 Encounter for therapeutic drug level monitoring; J96.01 Acute respiratory failure with hypoxia; F17.210 Nicotine dependence, cigarettes, uncomplicated; Z79.899 Other long term (current) drug therapy; Z20.822 Contact with and (suspected) exposure to COVID-19; A41.9 Sepsis, unspecified organism; I25.10 Atherosclerotic heart disease of native coronary artery without angina pectoris